=== PATIENT | male | born 1965 | race Caucasian/White ===

== ENCOUNTER 2016-12-11 09:08 | Emergency (ER) | payer BC, OTHER ==
[2016-12-11] MEDS ORDERED: ACETAMINOPHEN 325 MG TABLET ONE (12:16)
[2016-12-11] MEDS ORDERED: IBUPROFEN 600 MG TABLET ONE (12:16)
== END 2016-12-11 12:28 | disposition home or self-care (01) ==
LOC: ED 09:08
DX: R04.0 Epistaxis (principal); J06.9 Acute upper respiratory infection, unspecified; Z87.891 Personal history of nicotine dependence
CPT/HCPCS: 87804; 99283 ×2; A9270 ×2